=== PATIENT | male | born 1950 | race Caucasian/White ===

== ENCOUNTER 2024-05-15 07:27 | Outpatient (CLI) | payer MEDICARE, SELFPAY ==
--- NOTE | 2024-05-15 07:38 | CT_ITS ---
WS: [id number] LDCT LUNG CANCER SCREENING HISTORY: NICOTINE DEPENDENCE, CIGARETTES TECHNIQUE: Axial imaging performed from the apices to 1 cm below the costophrenic angles. Coronal and sagittal reformats are submitted with axial MIP series. All CT scans at [facility] use at least one of these dose optimization techniques: automated exposure control; mA and/or kV adjustment per patient size (includes targeted exams where dose is matched to clinical indication); or iterative reconstruction. DLP: 66.47 mGy.cm DIvol: Mean CTDIvol: 1.00 (mGy) COMPARISON: None available. Diagnostic quality: Satisfactory Lungs: Mild hyperinflation. Scattered granulomata which are benign. Linear atelectasis at the LEFT lung base with a nodular opacification measuring 7 mm which will need to be further evaluated. No endobronchial lesions. Heart: Normal size heart with no pericardial effusion.. Other findings: Mild atherosclerosis aorta. Normal size pulmonary artery. No mediastinal or hilar adenopathy. Small hiatal hernia. No adrenal mass. Low- attenuation masses in the liver with the largest measuring 1.6 cm in diameter. Incompletely visualized low-attenuation mass superior pole LEFT kidney measures 3.8 cm. Mild curvature and scoliosis thoracic spine. No destructive bone lesions. CT/CT lung screening [id number] IMPRESSION: LUNG-RADS: 3S-Probably Benign with Significant Findings FOLLOW UP: 6 Month LDCT OTHER FINDINGS (S MODIFIER): Low-attenuation masses in the liver and superior p ole LEFT kidney. These are probably cysts due to their attenuation. Recommend f ollow-up ultrasound evaluation.
== END 2024-05-15 07:28 | disposition home or self-care (01) ==
PROVIDERS: PCP Family Medicine; Visit Provider Family Medicine
DX: Z12.2 Encounter for screening for malignant neoplasm of respiratory organs (principal); F17.210 Nicotine dependence, cigarettes, uncomplicated; R91.8 Other nonspecific abnormal finding of lung field; J84.10 Pulmonary fibrosis, unspecified; J98.11 Atelectasis; I70.0 Atherosclerosis of aorta; K44.9 Diaphragmatic hernia without obstruction or gangrene; R16.0 Hepatomegaly, not elsewhere classified; N28.89 Other specified disorders of kidney and ureter; M41.84 Other forms of scoliosis, thoracic region; M43.8X4 Other specified deforming dorsopathies, thoracic region
CPT/HCPCS: 71271